=== PATIENT | female | born 1960 | race Caucasian/White ===

== ENCOUNTER 2017-05-15 07:56 | Day surgery (SDC) | payer BC ==
[2017-05-13 12:35] LABS: BILIRUBIN,URINE NEGATIVE (NEGATIVE); CLARITY/URINE CLEAR (CLEAR); COLOR,URINE YELLOW (YELLOW); GLUCOSE,URINE NEGATIVE (NEGATIVE); KETONES,URINE NEGATIVE (NEGATIVE); LEUKOCYTE ESTERASE ,URINE NEGATIVE (NEGATIVE); NITRITE, URINE NEGATIVE (NEGATIVE); PROTEIN URINE NEGATIVE (NEGATIVE); UROBILINOGEN,URINE 0.2 (0.2-1.0)
[2017-05-13 12:36] LABS: BLOOD, URINE TRACE (NEGATIVE)
[2017-05-13 12:43] LABS: BASOPHILS % (AUTO) 0.3 % (0.0-2.0); EOSINOPHILS # (AUTO) 0.1 K/uL (0.0-0.4); EOSINOPHILS % (AUTO) 1.2 % (0.0-4.0); HEMATOCRIT 42.1 % (36-48); HEMOGLOBIN 13.6 g/dL (12.0-16.0); LYMPHOCYTES # (AUTO) 1.1 K/uL (1.0-5.5); LYMPHOCYTES % (AUTO) 22.1 % (20.5-51.5); MEAN CORPUSCULAR HEMOGLOBIN 29 pg (27-31); MEAN CORPUSCULAR HGB CONC 32 % (32-36); MEAN CORPUSCULAR VOLUME 89 fL (79.0-98.0); MONOCYTES # (AUTO) 0.4 K/uL (0.0-1.0); MONOCYTES % (AUTO) 8.5 % (1.7-9.3); NEUTROPHILS # (AUTO) 3.3 K/uL (1.8-7.7); NEUTROPHILS % (AUTO) 67.9 % (40.0-70.0); PLATELET COUNT (AUTO) 200 K/uL (130-430); RED BLOOD CELL COUNT(AUTO) 4.76 MIL/uL (4.2-6.2); RED CELL DISTRIBUTION WIDTH 15.6 % (9.0-15.0); WHITE BLOOD COUNT (AUTO) 4.9 K/uL (4.8-10.8)
[2017-05-13 12:49] LABS: BACTERIA,URINE FEW /HPF (None Seen); MUCUS,URINE None Seen /LPF (None Seen); RBC,URINE 0-3 /HPF (0-3); WBC,URINE 0-3 /HPF (0-3)
[2017-05-13 12:51] LABS: CALCIUM 10.1 mg/dL (8.4-11.0); CREATININE 0.9 mg/dL (0.55-1.30); POTASSIUM 4.7 mmol/L (3.5-5.1)
[2017-05-13 12:56] LABS: PROTHROMBIN TIME 10.3 SECS (9.5-12.5)
[~2017-05-15] VITALS: Ht 162.6 cm; Wt 62.6 kg
[2017-05-15] MEDS ORDERED: LR 1,000 ML IV SCH (11:26)
[2017-05-15] MEDS ORDERED: HYDROmorphone 2 MG TAB PO PRN (11:30)
[2017-05-15] MEDS ORDERED: METOCLOPRAMIDE HCL 10 MG/2 ML VIAL IVP PRN (11:30)
[2017-05-15] MEDS ORDERED: MORPHINE 4 MG/ML INJ. SYRINGE IVP PRN ×3 (11:30)
[2017-05-15] MEDS ORDERED: PROMETHAZINE HCL 25 MG/ML AMP IM PRN (11:30)
[2017-05-15] MEDS ORDERED: ONDANSETRON HCL 4 MG/2 ML VIAL IVP PRN (11:30)
[2017-05-15] MEDS ORDERED: LR 1,000 ML IV.SOLN IV ONE (11:40)
[2017-05-15] MEDS ORDERED: MIDAZOLAM HCL 5 MG/ML VIAL (VERSED) IV ONE (11:40)
[2017-05-15] MEDS ORDERED: KETOROLAC TROMETHAMINE 30 MG VIAL IVP ONE (11:40)
[2017-05-15] MEDS ORDERED: NS IRRIG SOLN 1000 ML IR ONE (11:40)
[2017-05-15] MEDS ORDERED: SEVOFLURANE 15 MIN GAS INH ONE (11:40)
[2017-05-15] MEDS ORDERED: fentaNYL CITRATE/PF 100 MCG/2 ML AMP IVP ONE (11:40)
[2017-05-15] MEDS ORDERED: PROPOFOL 200MG/ 20ML VIAL (DIPRIVAN) IV ONE (11:40)
[2017-05-15] MEDS: OXYCODONE/ACETAMINOPHEN 5-325 TABLET PO PRN (13:05)
[2017-05-15] MEDS ORDERED: OXYCODONE/ACETAMINOPHEN 5-325 TABLET ONE (13:06)
[2017-05-15 13:11] VITALS: BP_SYST 116
== END 2017-05-15 13:50 | disposition home or self-care (01) ==
LOC: SDS 07:56 → SMU 07:57 → SDS 13:50
PROVIDERS: ATTEND Obstetrics & Gynecology
DX: N93.9 Abnormal uterine and vaginal bleeding, unspecified (principal); Z98.890 Other specified postprocedural states
CPT/HCPCS: 36415; 58563; 80048; 81000; 84703; 85025; 85610; 85730; 86886; 86900; 86901; 88305; J1885; J2250; J2704; J3010; J7120